=== PATIENT | female | born 1955 ===

== ENCOUNTER 2021-03-03 06:33 | Day surgery (SDC) | payer OTHER | END 2021-03-03 17:30 | disposition home or self-care (01) | LOC: CIR.AMB 06:33 | PROVIDERS: ATTEND Orthopaedic Surgery Hand Surgery | DX: S52.5 Fracture of lower end of radius (principal); M66.341 Spontaneous rupture of flexor tendons, right hand; Z20.822 Contact with and (suspected) exposure to COVID-19 ==